=== PATIENT | female | born 1970 | race Caucasian/White ===

== ENCOUNTER 2020-05-19 14:08 | Emergency (ER) | payer SELFPAY ==
[~2020-05-19] VITALS: Ht 152.4 cm; Wt 68.1 kg
[2020-05-19 14:22] VITALS: BP 155/100
[2020-05-19] MEDS: ACETAMINOPHEN 500 MG TABLET PO ONE (14:45)
--- NOTE | 2020-05-19 14:48 | PHYS DOC ---
Past Medical History Past Medical History: Diabetes-Type II, Hypertension Past Surgical History: Cholecystectomy, Smoking Status: Current Every Day Smoker Alcohol Use: Occasionally General Adult EDM: Chief Complaint: HEADACHE HPI: HPI: Patient is a 49 year old female with history of diabetes type 2, hypertension, who presents today via EMS from home. Patient was just discharged from [facility] this morning after being diagnosed and treated for Covid pneumonia. She states she went home and had a fever and headache and decided to come to the ED. She is also requesting/demanding food to eat. She states she has not had anything to eat all day. I was talking to her she states if we are not going to keep in the hospital she is going to go to right now. Review of Systems: Review of Systems: Constitutional: Reports fever Eyes: Denies change in visual acuity. [] HENT: Denies nasal congestion or sore throat. [] Respiratory: Denies cough or shortness of breath. [] Cardiovascular: Denies chest pain or edema. [] GI: Reports feeling hungry. Denies abdominal pain, nausea, vomiting, bloody stools or diarrhea. [] : Denies dysuria. [] Musculoskeletal: Denies back pain or joint pain. [] Integument: Denies rash. [] Neurologic: Reports headache, denies focal weakness or sensory changes. [] Psychiatric: Denies depression or anxiety. [] Heart Score: Risk Factors: Risk Factors: DM, Current or recent (<one month) smoker, HTN, HLP, family history of CAD, obesity. Risk Scores: Score 0 - 3: 2.5% MACE over next 6 weeks - Discharge Home Score 4 - 6: 20.3% MACE over next 6 weeks - Admit for Clinical Observation Score 7 - 10: 72.7% MACE over next 6 weeks - Early Invasive Strategies Allergies: Allergies: Allergies Coded Allergies Type Severity Reaction Last Updated Verified No Known Drug Allergies 05/19/20 No Physical Exam: PE: Constitutional: Well developed, well nourished, no acute distress, non-toxic appearance. [] HENT: Normocephalic, atraumatic, bilateral external ears normal, oropharynx mo ist, no oral exudates, nose normal. [] Eyes: PERRLA, EOMI, conjunctiva normal, no discharge. [] Neck: Normal range of motion, no tenderness, supple, no stridor. [] Cardiovascular:Heart rate regular rhythm, no murmur [] Lungs & Thorax: Bilateral breath sounds clear to auscultation [] Abdomen: Bowel sounds normal, soft, no tenderness, no masses, no pulsatile masses. [] Skin: Warm, dry, no erythema, no rash. [] Back: No tenderness, no CVA tenderness. [] Extremities: No tenderness, no cyanosis, no clubbing, ROM intact, no edema. [] Neurologic: Alert and oriented X 3, normal motor function, normal sensory function, no focal deficits noted. [] Psychologic: Flat affect, restless. Current Patient Data: Vital Signs: Vital Signs Date Time Temp Pulse Resp B/P (MAP) Pulse Ox O2 Delivery O2 Flow Rate FiO2 05/19/20 14:22 99.1 100 22 155/100 (118) 98 Room Air 99.1 EKG: EKG: [] Radiology/Procedures: Radiology/Procedures: [] Course & Med Decision Making: Course & Med Decision Making Pertinent Labs and Imaging studies reviewed. (See chart for details) This is a 49-year-old female patient presenting to the ED today from home. Patient was discharged from [facility] this morning after being diagnosed and treated for Covid pneumonia. She states she has a headache and fever. Temperature is 99.1. EMS reports she also had methamphetamine prior to coming to the ED. Patient states she will go to [facility] if we are not going to admit her. I offered her a gram of Tylenol. She started asking for food. Informed her we typically do not feed the people in the emergency room. RN called mother who stated this patient has no reason to be in the ED right now and needs to be discharged to home. She was discharged to home and instructed to follow-up with her own PCP. Giselle Disclaimer: Giselle Disclaimer: This electronic medical record was generated, in whole or in part, using a voice recognition dictation system. Departure Departure Impression: Primary Impression: Headache Qualified Codes: R51.9 - Headache, unspecified Additional Impressions: Fever Qualified Codes: R50.9 - Fever, unspecified Lab test positive for detection of COVID-19 virus Disposition: 01 DC HOME SELF CARE/HOMELESS Condition: STABLE Referrals: DEVAN PERSAUD DO (PCP) Follow-up next week Patient Instructions: Fever, Adult, Headache, FAQs Additional Instructions: Please follow up with your doctor next week, take tylenol/ibuprofen for pain or fever. TAMEKA DOMINGUEZ APRN May 19, 2020 14:48
== END 2020-05-19 15:31 | disposition home or self-care (01) ==
LOC: ER 14:08
DX: U07.1 COVID-19 (principal); R51.9 Headache, unspecified; R50.9 Fever, unspecified; E11.9 Type 2 diabetes mellitus without complications; I10 Essential (primary) hypertension; F17.200 Nicotine dependence, unspecified, uncomplicated; Z90.49 Acquired absence of other specified parts of digestive tract; Z98.890 Other specified postprocedural states
CPT/HCPCS: 99283